=== PATIENT | female | born 1965 | race Caucasian/White ===

== ENCOUNTER 2021-03-01 08:48 | Outpatient (CLI) | payer OTHER, SELFPAY | END 2021-03-01 08:49 | disposition home or self-care (01) | LOC: CHSCOVIDVC 08:49 | PROVIDERS: PCP Family Medicine | DX: Z23 Encounter for immunization (principal) | CPT/HCPCS: 0011A; 91301 ==

== ENCOUNTER 2021-03-29 08:55 | Outpatient (CLI) | payer OTHER, SELFPAY | END 2021-03-29 08:56 | disposition home or self-care (01) | LOC: CHSCOVIDVC 08:55 | PROVIDERS: PCP Family Medicine | DX: Z23 Encounter for immunization (principal) | CPT/HCPCS: 0012A; 91301 ==

== ENCOUNTER 2021-08-12 08:00 | Outpatient (CLI) | payer OTHER, SELFPAY ==
[2021-08-12 08:10] LABS: Hematocrit 35.2 % (35.0-49.0); Mean Corpuscular HGB Conc 34.1 g/dL (32.0-36.0); Mean Corpuscular Hemoglobin 32.3 pg (27.0-31.0); Mean Corpuscular Volume 94.6 fL (78.0-102.0); Mean Platelet Volume 9.3 fl (9.2-11.8); Platelet Count Result 290 K/mm3 (150-420); Red Blood Count 3.72 M/mm3 (4.20-5.40); White Blood Count 6.4 K/mm3 (4.8-10.8)
[2021-08-12 08:26] LABS: Band Neutrophils Percent 0 % (0-6); Eosinophils Absolute Manual 0.19 K/mm3 (0.02-0.5); Eosinophils Percent Manual 3 % (1-6); Lymphocytes Absolute Manual 0.25 K/mm3 (1.1-4.5); Lymphocytes Percent Manual 4 % (18-44); Monocytes Absolute Manual 0.38 K/mm3 (0.1-0.90); Monocytes Percent Manual 6 % (3-9); Neutrophils Absolute Manual 3.26 K/mm3 (1.7-7.2); Neutrophils Percent Manual 51 % (46-73); Total Cells Counted 100
[2021-08-12 08:27] LABS: Platelet Estimate Adequate (Adequate)
[2021-08-12 09:05] LABS: Alanine Aminotransferase 35 U/L (14-59); Albumin Level 3.7 g/dL (3.4-5.0); Alkaline Phosphatase 95 U/L (46-116); Anion Gap 11 mmol/L (8-16); Aspartate Amino Transferase 16 U/L (15-37); Bilirubin,Total 0.3 mg/dL (0.00-1.00); Blood Urea Nitrogen 17 mg/dL (7-18); Calcium 8.9 mg/dL (8.5-10.1); Carbon Dioxide 31 mmol/L (21-32); Chloride 102 mmol/L (98-108); Cholesterol 172 mg/dL (0-200); Estimated Glomerular Filt Rate 56; Free T4 Free Thyroxine 1.23 ng/dL (0.76-1.46); Glucose 105 mg/dL (70-99); HDL Direct 55 mg/dL (40-60); LDL Cholesterol Calculated 90 mg/dL (<130); Osmolality Calculated 299 mOsm/kg (285-295); Potassium 4.1 mmol/L (3.5-5.1); Sodium 144 mmol/L (136-145); Thyroid Stimulating Hormone 0.29 uIU/mL (0.36-3.74); Total Protein 7.1 g/dL (6.4-8.2); Triglycerides 133 mg/dL (0-150)
== END 2021-08-12 08:01 | disposition home or self-care (01) ==
LOC: CHSLAB 08:03
PROVIDERS: PCP Family Medicine; Visit Provider Nurse Practitioner Family
DX: E03.9 Hypothyroidism, unspecified (principal); I10 Essential (primary) hypertension
CPT/HCPCS: 36415; 80053; 80061; 84439; 84443; 85025

== ENCOUNTER 2021-09-11 08:09 | Outpatient (CLI) | payer OTHER, SELFPAY ==
--- NOTE | ~2021-09-11 | MM_ITS ---
EXAMINATION: MM screening zachary BI w marilynn HISTORY: Screening mammogram TECHNIQUE: Craniocaudal and mediolateral oblique 3-D tomosynthesis images were obtained and synthetic 2-D images were generated. CAD analysis was submitted and interpreted. COMPARISON: BREAST PARENCHYMAL COMPOSITION: The breasts are almost entirely fatty. FINDINGS: There is no evidence of suspicious mass, calcification, or architectural distortion to sugg est malignancy in either breast. There has been no suspicious interval change. IMPRESSION: 1. No mammographic evidence of malignancy. 2. Recommend routine screening mammography in one year. BI-RADS Category 1: Negative Reviewed, dictated and finalized at location A. [facility]
== END 2021-09-11 08:10 | disposition home or self-care (01) ==
LOC: CHSIMG 08:10
PROVIDERS: PCP Nurse Practitioner Family; Visit Provider Nurse Practitioner Family
DX: Z12.31 Encounter for screening mammogram for malignant neoplasm of breast (principal)
CPT/HCPCS: 77063; 77067

== ENCOUNTER 2022-07-03 12:43 | Outpatient (CLI) | payer SELFPAY ==
[2022-07-03 13:27] LABS: Thyroid Stimulating Hormone 27.29 uIU/mL (0.36-3.74)
== END 2022-07-03 12:44 | disposition home or self-care (01) ==
LOC: CHSLAB 12:47
PROVIDERS: PCP Family Medicine; Visit Provider Nurse Practitioner Family
DX: E03.9 Hypothyroidism, unspecified (principal)
CPT/HCPCS: 36415; 84443

== ENCOUNTER 2024-02-28 16:53 | Outpatient (CLI) | payer OTHER, SELFPAY ==
[2024-02-28 17:39] LABS: Hematocrit 35.6 % (35.0-49.0); Hemoglobin 11.6 g/dL (12.0-15.0); Mean Corpuscular HGB Conc 32.6 g/dL (32-36); Mean Corpuscular Hemoglobin 30.7 pg (27.0-31.0); Mean Corpuscular Volume 94.2 fL (78.0-102.0); Mean Platelet Volume 9.9 fl (9.2-11.8); Platelet Count Result 298 K/mm3 (150-420); Red Blood Count 3.78 M/mm3 (4.20-5.40); White Blood Count 6.1 K/mm3 (4.8-10.8)
[2024-02-28 17:58] LABS: Alanine Aminotransferase 30 U/L (14-59); Albumin Level 3.8 g/dL (3.4-5.0); Alkaline Phosphatase 93 U/L (46-116); Anion Gap 9 mmol/L (4-12); Aspartate Amino Transferase 15 U/L (15-37); Bilirubin,Total 0.2 mg/dL (0.00-1.00); Blood Urea Nitrogen 16 mg/dL (7-18); Calcium 9.1 mg/dL (8.5-10.1); Carbon Dioxide 32 mmol/L (21-32); Chloride 103 mmol/L (98-108); Cholesterol 180 mg/dL (0-200); Estimated Glomerular Filt Rate > 60; Free T4 Free Thyroxine 1.36 ng/dL (0.76-1.46); Glucose 113 mg/dL (70-99); HDL Direct 73 mg/dL (40-60); LDL Cholesterol Calculated 88 mg/dL (<130); Osmolality Calculated 300 mOsm/kg (285-295); Potassium 3.4 mmol/L (3.5-5.1); Sodium 144 mmol/L (136-145); Thyroid Stimulating Hormone 0.03 uIU/mL (0.36-3.74); Total Protein 7.1 g/dL (6.4-8.2); Triglycerides 95 mg/dL (0-150)
[2024-02-28 23:12] LABS: Band Neutrophils Percent 0 % (0-6); Basophils Absolute Manual 0.18 K/mm3 (0-0.1); Basophils Percent Manual 3 % (0-1); Eosinophils Absolute Manual 0.06 K/mm3 (0.02-0.50); Eosinophils Percent Manual 1 % (1-6); Lymphocytes Percent Manual 28 % (18-44); Monocytes Absolute Manual 0.24 K/mm3 (0.1-0.90); Monocytes Percent Manual 4 % (3-9); Neutrophils Percent Manual 64 % (46-73); Platelet Estimate Adequate (Adequate)
[2024-03-01 00:37] LABS: Vitamin D 25 Hydroxy 23 ng/mL (30-100)
[2024-03-01 13:35] LABS: Hemoglobin A1C 5.2 % (<5.7)
== END 2024-02-28 16:54 | disposition home or self-care (01) ==
PROVIDERS: PCP Nurse Practitioner Family; Visit Provider Nurse Practitioner Family
DX: Z13.6 Encounter for screening for cardiovascular disorders (principal); I10 Essential (primary) hypertension; E03.9 Hypothyroidism, unspecified; R73.09 Other abnormal glucose; Z79.899 Other long term (current) drug therapy; E55.9 Vitamin D deficiency, unspecified
CPT/HCPCS: 36415; 80053; 80061; 82306; 83036; 84439; 84443; 85025